=== PATIENT | male | born 1975 | race Caucasian/White ===

== ENCOUNTER 2016-11-02 15:17 | Emergency (ER) | payer OTHER ==
[~2016-11-02 15:17] MED LIST: ACID REDUCER75 M1 PO; ALBUTEROL17 GM INH; AMOXICILLIN PO; AZITHROMYCIN250 MG PO; BACTRIM DS TABL1 TA1; BACTRIM DS TABL1 TA1 PO; BACTRIM DS TABL1 TAB PO; BENZONATATE PO; BLOOD PRESSURE MED; CATAFLAM50 MG PO; DELTASONE20 MG PO; DICLOFENAC PO; FLEXERIL PO; FLEXERIL10 M1 PO; HEARTBURN RELIE75 M2 PO; IBUPROFEN PO; IBUPROFEN600 MG PO; ILOTYCIN1 G1 OD; KEFLEX500 MG; KEFLEX500 MG PO; LIPITOR PO; LORTAB 5/500 TA1 TA2; LORTAB 5/500 TA1 TA2 PO; MEDROL DOSEPAK4 MG DOB; NAPROXEN PO; NO MEDICATIONS; NORFLEX100 M1 PO; NORVASC PO; PERCOCET5/325 PO; PHENERGAN DM1 ML PO; PREDNISONE PO; PREDNISONE10 MG PO; PREVACID PO; PRILOSEC PO; PROMETHAZI6.25 MG/5 PO; PROTONIX PO; SKELAXIN PO; TRIAMCINOLONE A15 G1 TP; TYLENOL #3 PO; VISTARIL PO; VOLTAREN75 MG PO; WESTCORT15 GM TOP; ZANTAC; ZANTAC PO
[2016-11-02] MEDS ORDERED: BP PILL (15:31)
== END 2016-11-02 17:55 | disposition home or self-care (01) ==
LOC: SED 15:17
DX: H00.011 Hordeolum externum right upper eyelid (principal); I10 Essential (primary) hypertension; F17.210 Nicotine dependence, cigarettes, uncomplicated
CPT/HCPCS: 99283